=== PATIENT | female | born 1985 | race Caucasian/White ===

== ENCOUNTER 2016-11-09 16:36 | Emergency (ER) | payer MEDICAID ==
[~2016-11-09] VITALS: Ht 172.7 cm; Wt 52.0 kg
[2016-11-09 16:37] VITALS: BP 151/77; PULSE 77; RESP 15; TEMP 98.2; O2SAT 98
--- NOTE | 2016-11-09 16:58 | PD ---
Physical Exam Time Seen by Provider: 16:57 Narrative 31 yo female here with dental pain for 1 days. Hurts to eat. Vital signs reviewed. Seen at triage desk. Awaiting bed placement. Data Data Last Documented VS Vital Signs Date Time Temp Pulse Resp B/P Pulse Ox O2 Delivery O2 Flow Rate FiO2 11/09/16 16:37 98.2 77 15 151/77 98 MDM Medical Record Reviewed: Yes Supervised Visit with BRAYDEN: No Daniel Marcelo Nov 09, 2016 16:58
[2016-11-09] MEDS ORDERED: CLIN1CAP5 PO (17:21)
[2016-11-09] MEDS ORDERED: IBUP800T23 PO (17:21)
[2016-11-09] MEDS ORDERED: PERI0.126 SWISH-SPIT (17:21)
[2016-11-09] MEDS ORDERED: MAGICPED SWISH-SPIT (17:21)
--- NOTE | 2016-11-09 17:22 | PD ---
HPI Chief Complaint: Oral / Dental Pain or Problem Time Seen by Provider: 17:19 Travel History International Travel<30 days: No Contact w/Intl Traveler<30days: No Traveled to known affect area: No History of Present Illness HPI 31-year-old female presents to the emergency department complaint of left lower dental pain that started last night. Reports subjective fever. Reports vomiting. Says she vomited last at 2:30 today. Denies facial edema or erythema. Pain is worse when she eats and drinks hot or cold foods. Has taken Goody powder and Tylenol with no relief of symptoms; last taken at about 11:30 this morning. Called her dentist and they could not see her immediately and told her to come to the ER. Allergies to amoxicillin and penicillin. Has no other medical complaints. No other modifying factors or associated signs and symptoms. PFSH Past Medical History Anemia: Yes Bipolar Disorder: Yes Anxiety: Yes (PTSD) Depression: Yes Cancer: Yes (CERVICAL) Hypertension: Yes Influenza Vaccination: No ?: Not LMP: 11/09/2016 Past Surgical History Cholecystectomy: Yes Gynecologic Surgery: Yes (CRYO SURGERY FOR CERVIX) Oral Surgery: Yes Tonsillectomy: Yes Social History Alcohol Use: No Tobacco Use: Yes (1/2 PPD) Substance Use: No Allergies-Medications (Allergen,Severity, Reaction): Coded Allergies: Penicillin (Verified Allergy, Intermediate, HIVES, 11/09/16) Amoxicillin (Verified Allergy, Unknown, 11/09/16) Reported Meds & Prescriptions Reported Meds & Active Scripts Active Peridex Liq (Chlorhexidine Gluconate (Mouth) Liq) 0.12% Soln 15 Ml SWISH-SPIT BID 10 Days Magic Mouthwash Pediatric/Adult Liq (Lidocaine/Diphenhydr/Alum/Mg/Simeth) 60 Ml Susp 5 Ml SWISH-SPIT Q3HR PRN Each 5mL contains: Diphenydramine 4.5mg, Viscous Lidocaine 2% 10mg, Maalox Advanced Regular Strength 2.7ml Clindamycin (Clindamycin HCl) 150 Mg Cap 300 Mg PO Q6H 10 Days Ibuprofen 800 Mg Tab 800 Mg PO Q6HR PRN Review of Systems Except as stated in HPI: all other systems reviewed are Neg Physical Exam Narrative GENERAL: Well-nourished, well-developed female patient, in no acute distress; afebrile, nontoxic-appearing SKIN: Warm and dry. HEAD: Atraumatic. Normocephalic. No facial edema, erythema, tenderness on palpation. No lymphadenopathy. EYES: Pupils equal and round. No scleral icterus. No injection or drainage. ENT: Mucosa pink and moist. Airway patent. MOUTH: Mucous membranes moist, no lesions, tongue and gums appear normal. Left lower Tooth #18 with tenderness on palpation; with large dental cavity and decay. Surrounding gingiva is with mild edema; without erythema, drainage. No obvious abscess noted. NECK: Trachea midline. No lymphadenopathy. CARDIOVASCULAR: Regular rate. RESPIRATORY: No accessory muscle use. GASTROINTESTINAL: Flat. MUSCULOSKELETAL: No obvious deformities. No clubbing. No cyanosis. No edema. NEUROLOGICAL: Awake and alert. Oriented 3. No obvious cranial nerve deficits. Motor grossly within normal limits. Normal speech. PSYCHIATRIC: Appropriate mood and affect; insight and judgment normal. Data Data Last Documented VS Vital Signs Date Time Temp Pulse Resp B/P Pulse Ox O2 Delivery O2 Flow Rate FiO2 11/09/16 16:37 98.2 77 15 151/77 98 Orders Ketorolac Inj (Toradol Inj) (11/09/16 17:30) [facility] Medical Decision Making Medical Screen Exam Complete: Yes Emergency Medical Condition: Yes Medical Record Reviewed: Yes Differential Diagnosis Dental abscess, infected dental carry, dentalgia Narrative Course 31-year-old female with left lower tooth #18 dentalgia. No facial edema or erythema. Patient is afebrile and nontoxic-appearing. Patient reports subjective fever and vomiting. Toradol administered in the ER. Clindamycin, Magic mouthwash, ibuprofen, Peridex mouth rinse prescribed for home. She provided emergency dental information sheet. Instructed patient to follow up with dentist. Patient verbalizes understanding and agreement with treatment plan. Patient is medically cleared and stable for discharge. Discussed reasons to return to the emergency department. Instructed patient to follow up with primary care provider. Patient agrees with treatment plan. The patients vital signs are stable and the patient is stable for outpatient follow-up and treatment. Patient discharged home, stable and in no acute distress. Diagnosis Primary Impression: Dentalgia Referrals: Dentist Primary Care Physician Patient Instructions: Dental Abscess (ED), Dental Caries (ED), General Instructions, Toothache (ED) Departure Forms: Tests/Procedures, Work Release Enter return to work date: Nov 10, 2016 Additional Instructions: Complete full course of antibiotics; clindamycin is on the $4 list at [facility] , otherwise try [facility] Ibuprofen or Tylenol as directed and as needed to reduce pain and inflammation Use Magic mouthwash rinse as directed and as needed to decrease pain Use Peridex as directed for oral hygiene Warm or cool compresses to the affected area Follow-up with dentist Follow-up with primary care provider Return to emergency department immediately with worsening of symptoms Med/Other Pt SpecificInfo: Prescription(s) given Scripts Chlorhexidine Gluconate (Mouth) Liq (Peridex Liq)0.12% Soln15 Ml SWISH-SPIT BID 10 Days Ref 0 Prov:Nathalie Reza 11/09/16 Ucqzurxvhjdbxfk-Zbfxiojcf-Mxg-Alum-Simeth Liq (Magic Mouthwash Pediatric/Adult Liq)60 Ml Susp5 Ml SWISH-SPIT Q3HR PRN (PAIN SCALE 1 TO 10) #60 ML Ref 0 Each 5mL contains: Diphenydramine 4.5mg, Viscous Lidocaine 2% 10mg, Maalox Advanced Regular Strength 2.7ml Prov:Nathalie Reza 11/09/16 Clindamycin 150 Mg [id number] Mg PO Q6H 10 Days Ref 0 Prov:Nathalie Reza 11/09/16 Ibuprofen 800 Mg [id number] Mg PO Q6HR PRN (PAIN) #30 TAB Ref 0 Prov:Nathalie Reza 11/09/16 Disposition: 01 DISCHARGE HOME Condition: Stable Nathalie Reza Nov 09, 2016 17:21
[2016-11-09] MEDS ORDERED: KETOROLAC TROMETHAMINE 60 MG/2 ML (IM) VIAL IM ONE (17:30)
== END 2016-11-09 17:53 | disposition home or self-care (01) ==
LOC: NEPK 16:36
DX: K08.89 Other specified disorders of teeth and supporting structures (principal); F17.200 Nicotine dependence, unspecified, uncomplicated
CPT/HCPCS: 96372; 99284; J1885